=== PATIENT | female | born 1955 | race Hispanic/Latino ===

== ENCOUNTER 2024-04-03 11:25 | Emergency (ER) | payer OTHER ==
[~2024-04-03] VITALS: Ht 175.3 cm; Wt 97.1 kg
[2024-04-03] MEDS: HYDROcodone/APAP 5/325 1 TAB TABLET PO ONE (14:30)
[2024-04-03] MEDS ORDERED: KETO10TA2 PO (15:02)
[2024-04-03] MEDS: KETOROLAC 15MG/ML VIAL (15MG/ML) IV ONE (15:20)
[2024-04-03] MEDS: DiphenhydrAMINE HCL 50 MG/ML VIAL IV ONE (15:20)
[2024-04-03] MEDS: dexaMETHasone SOD PHOSPHATE 4 MG/ML 1ML VIAL IVP ONE (15:21)
[2024-04-03 15:49] VITALS: BP 157/82; PULSE 52; RESP 17; O2SAT 100
== END 2024-04-03 15:51 | disposition home or self-care (01) ==
LOC: EDH 11:25
DX: G43.909 Migraine, unspecified, not intractable, without status migrainosus (principal); Z90.49 Acquired absence of other specified parts of digestive tract; Z90.710 Acquired absence of both cervix and uterus; Z98.890 Other specified postprocedural states; W22.8XXA Striking against or struck by other objects, initial encounter; Y93.89 Activity, other specified; Y92.89 Other specified places as the place of occurrence of the external cause; Y99.8 Other external cause status
CPT/HCPCS: 99285; 72125; 96374; 96375; 70450; J1100; J1200; J1885